=== PATIENT | female | born 1975 | race Two or more races ===

== ENCOUNTER 2019-10-15 12:03 | Inpatient (IN) | payer OTHER ==
[~2019-10-15] VITALS: Ht 160 cm; Wt 63.5 kg
[~2019-10-15 12:03] MED LIST: PROAIR HFA8.5 GM IH
== END 2019-10-23 11:52 | DRG 743 ==
LOC: SURH 10-20 08:30 → O/R 10-20 08:51 → OB/GYN 10-20 08:51
PROVIDERS: ADMIT Obstetrics & Gynecology
PROC: 0UT70ZZ Resection of Bilateral Fallopian Tubes, Open Approach (ICD-10-PCS; 2019-10-20)
PROC: 3E0F7GC Introduction of Other Therapeutic Substance into Respiratory Tract, Via Natural or Artificial Opening (ICD-10-PCS; 2019-10-20)
PROC: 0UT90ZZ Resection of Uterus, Open Approach (ICD-10-PCS; principal; 2019-10-20 08:30)
DX: D25.1 Intramural leiomyoma of uterus (principal); D25.0 Submucous leiomyoma of uterus; D25.2 Subserosal leiomyoma of uterus; N72 Inflammatory disease of cervix uteri; J45.909 Unspecified asthma, uncomplicated